=== PATIENT | male | born 1935 | race Caucasian/White ===

== ENCOUNTER 2020-07-23 13:02 | Emergency (ER) | payer OTHER ==
[2020-07-23 14:05] VITALS: TEMP 98.2; BMI 31.8
[2020-07-23 15:01] LABS: BASO % 0.9 % (0-2.0); EOS % 2.3 % (0-4.5); HEMATOCRIT 46.4 % (35.4-49); HEMOGLOBIN 15.7 GM/dL (11.7-16.9); LYMPH % 11.3 % (8-40); MCH 32.3 pg (25.7-33.7); MCHC 33.8 g/dl (32.0-35.9); MEAN CELL VOLUME 95.6 fl (80-96); MONO % 9.2 % (3.8-10.2); NEUT % 76.3 % (42.8-82.8); PLATELET COUNT 125 K/MM3 (134-434); RBC 4.86 M/mm3 (4.00-5.60); RDW 15.9 % (11.9-15.9)
[2020-07-23 15:26] LABS: CALCIUM 8.5 mg/dL (8.5-10.1)
[2020-07-23 15:27] LABS: ALBUMIN 3.2 g/dl (3.4-5.0); BLOOD UREA NITROGEN 25.7 mg/dL (7-18); MAGNESIUM 1.8 mg/dL (1.8-2.4)
[2020-07-23 15:30] LABS: CREATININE 0.8 mg/dL (0.55-1.3)
[2020-07-23 15:32] LABS: TOT PROT 5.9 g/dl (6.4-8.2)
[2020-07-23 16:28] LABS: EPI CELLS 10 /uL (0-25.1); HYALINE CASTS 3 /uL (0-3.1); URINE APPEARANCE CLEAR; URINE BACTERIA 53 /uL (0-1359); URINE BILIRUBIN 1+ (NEGATIVE); URINE COLOR DK YELLOW; URINE GLUCOSE (UA) NEGATIVE (NEGATIVE); URINE KETONE 1+ (NEGATIVE); URINE LEUK ESTERASE TRACE (NEGATIVE); URINE NITRITE NEGATIVE (NEGATIVE); URINE PROTEIN 1+ (NEGATIVE); URINE RBC 165 /uL (0-23.9); URINE WBC 77 /uL (0-25.8)
[2020-07-23] MEDS ORDERED: CEFTRIAXONE 1 GM in DEXTROSE 5%-WATER - 100 ML IVPB ONE (17:08)
[2020-07-23] MEDS ORDERED: CEFTRIAXONE 1 GM/50 ML BAG ONE (17:23)
[2020-07-23 19:40] VITALS: BP 122/62; PULSE 82
== END 2020-07-23 19:57 ==
LOC: JER 13:02
DX: R41.82 Altered mental status, unspecified (principal); N39.0 Urinary tract infection, site not specified
CPT/HCPCS: 36415; 70450-TC; 71045-TC-FY; 80053; 81003; 82550; 83735; 84443; 84484; 85025; 87086; 93005; 93010; 99285-25; C9803; U0003; U0005

== ENCOUNTER 2020-08-10 06:24 | Inpatient (IN) | payer OTHER ==
[2020-08-10 06:34] VITALS: BMI 26.5
[2020-08-10 08:19] LABS: EOS % 2.2 % (0-4.5); HEMATOCRIT 44.6 % (35.4-49); HEMOGLOBIN 14.9 GM/dL (11.7-16.9); LYMPH % 16.6 % (8-40); MCH 32.1 pg (25.7-33.7); MCHC 33.4 g/dl (32.0-35.9); MEAN CELL VOLUME 95.9 fl (80-96); MEAN PLT VOLUME 8.5 fl (7.5-11.1); MONO % 8.4 % (3.8-10.2); NEUT % 71.8 % (42.8-82.8); PLATELET COUNT 158 K/MM3 (134-434); RBC 4.66 M/mm3 (4.00-5.60); RDW 15.2 % (11.9-15.9); WHITE BLOOD COUNT 4.2 K/mm3 (4.0-10.0)
[2020-08-10 08:26] LABS: ACTIVATED PTT 29.1 SECONDS (25.2-36.5)
[2020-08-10 09:21] LABS: EPI CELLS 4 /uL (0-25.1); HYALINE CASTS 0 /uL (0-3.1); PH,URINE 6.5 (5.0-8.0); URINE APPEARANCE CLEAR; URINE BACTERIA 23 /uL (0-1359); URINE BILIRUBIN NEGATIVE (NEGATIVE); URINE COLOR YELLOW; URINE GLUCOSE (UA) NEGATIVE (NEGATIVE); URINE KETONE NEGATIVE (NEGATIVE); URINE LEUK ESTERASE NEGATIVE (NEGATIVE); URINE NITRITE NEGATIVE (NEGATIVE); URINE PROTEIN NEGATIVE (NEGATIVE); URINE RBC 70 /uL (0-23.9); URINE UROBILINOGEN 0.2 mg/dL (0.2-1.0); URINE WBC 8 /uL (0-25.8)
[2020-08-10 09:29] LABS: CALCIUM 8.7 mg/dL (8.5-10.1)
[2020-08-10 09:30] LABS: ALBUMIN 3.2 g/dl (3.4-5.0)
[2020-08-10 09:33] LABS: CREATININE 0.7 mg/dL (0.55-1.3)
[2020-08-10 09:35] LABS: BILIRUBIN,TOTAL 0.5 mg/dL (0.2-1)
[2020-08-10 10:08] LABS: INR 1.02 (0.83-1.09); PROTHROMBIN TIME (PATIENT) 12.5 SEC (9.7-13.0)
[2020-08-10] MEDS ORDERED: PANTOPRAZOLE SODIUM 40 MG VIAL IVPUSH ONE (11:34)
[2020-08-10] MEDS ORDERED: PANTOPRAZOLE SODIUM 40 MG VIAL ONE (11:58)
[2020-08-10] MEDS ORDERED: ACETAMINOPHEN 325 MG TABLET (FP) PO PRN (14:16)
[2020-08-10 19:50] LABS: HEMATOCRIT 41.8 % (35.4-49); HEMOGLOBIN 14.1 GM/dL (11.7-16.9); MCH 32.4 pg (25.7-33.7); MCHC 33.8 g/dl (32.0-35.9); MEAN CELL VOLUME 95.9 fl (80-96); MEAN PLT VOLUME 8.3 fl (7.5-11.1); PLATELET COUNT 151 K/MM3 (134-434); RBC 4.36 M/mm3 (4.00-5.60); RDW 15.4 % (11.9-15.9); WHITE BLOOD COUNT 4.3 K/mm3 (4.0-10.0)
[2020-08-10] MEDS: PANTOPRAZOLE SODIUM 40 MG VIAL IVPUSH SCH (22:26)
[2020-08-11] MEDS: TAMSULOSIN HCL 0.4 MG CAP PO SCH (08:12)
[2020-08-11 09:49] LABS: HEMATOCRIT 42.4 % (35.4-49); HEMOGLOBIN 14.5 GM/dL (11.7-16.9); MCH 32.5 pg (25.7-33.7); MCHC 34.1 g/dl (32.0-35.9); MEAN CELL VOLUME 95.3 fl (80-96); MEAN PLT VOLUME 7.8 fl (7.5-11.1); PLATELET COUNT 163 K/MM3 (134-434); RBC 4.45 M/mm3 (4.00-5.60); RDW 15.3 % (11.9-15.9)
[2020-08-11] MEDS: TOLTERODINE TARTRATE LA 4 MG CAP.SR.24H (FP) PO SCH (09:51)
[2020-08-11] MEDS: OLANZapine 5 MG TABLET PO SCH (09:52)
[2020-08-11] MEDS: THIAMINE HCL 100 MG TABLET (FP) PO SCH (09:52)
[2020-08-11] MEDS: FERROUS SO4 325 MG TABLET (FP) PO SCH (09:52)
[2020-08-11] MEDS: FOLIC ACID 1 MG TABLET (FP) PO SCH (09:52)
[2020-08-11] MEDS: PANTOPRAZOLE SODIUM 40 MG VIAL IVPUSH SCH ×2 (09:52→21:00)
[2020-08-11] MEDS ORDERED: VITAMIN B COMPLEX PO SCH (10:00)
[2020-08-11 10:07] LABS: CALCIUM 8.4 mg/dL (8.5-10.1)
[2020-08-11 10:08] LABS: BLOOD UREA NITROGEN 9.2 mg/dL (7-18)
[2020-08-11 10:11] LABS: CREATININE 0.9 mg/dL (0.55-1.3)
[2020-08-12] MEDS: TAMSULOSIN HCL 0.4 MG CAP PO SCH (08:42)
[2020-08-12 09:50] LABS: BASO % 1.2 % (0-2.0); EOS % 2.3 % (0-4.5); HEMATOCRIT 45.2 % (35.4-49); HEMOGLOBIN 15.6 GM/dL (11.7-16.9); LYMPH % 21.4 % (8-40); MCH 32.6 pg (25.7-33.7); MCHC 34.4 g/dl (32.0-35.9); MEAN CELL VOLUME 94.7 fl (80-96); MEAN PLT VOLUME 8.2 fl (7.5-11.1); MONO % 11.1 % (3.8-10.2); PLATELET COUNT 179 K/MM3 (134-434); RBC 4.77 M/mm3 (4.00-5.60); RDW 15.2 % (11.9-15.9)
[2020-08-12 10:17] LABS: ALBUMIN 3.4 g/dl (3.4-5.0); CALCIUM 8.9 mg/dL (8.5-10.1)
[2020-08-12 10:18] LABS: MAGNESIUM 2.2 mg/dL (1.8-2.4)
[2020-08-12 10:20] LABS: CREATININE 0.8 mg/dL (0.55-1.3)
[2020-08-12 10:22] LABS: BILIRUBIN,TOTAL 1.8 mg/dL (0.2-1); TOT PROT 6.7 g/dl (6.4-8.2)
[2020-08-12] MEDS ORDERED: PT OWN MED DRAWER 7, Y5N ONE (10:25)
[2020-08-12] MEDS: FERROUS SO4 325 MG TABLET (FP) PO SCH (10:36)
[2020-08-12] MEDS: TOLTERODINE TARTRATE LA 4 MG CAP.SR.24H (FP) PO SCH (10:36)
[2020-08-12] MEDS: THIAMINE HCL 100 MG TABLET (FP) PO SCH (10:36)
[2020-08-12] MEDS: OLANZapine 5 MG TABLET PO SCH (10:36)
[2020-08-12] MEDS: FOLIC ACID 1 MG TABLET (FP) PO SCH (10:36)
[2020-08-12] MEDS ORDERED: ERTAPENEM SODIUM 1 GM in SODIUM CHLORIDE 50 ML IVPB SCH (14:00)
[2020-08-13] MEDS ORDERED: PT OWN MED DRAWER 7, Y5N ONE (09:15)
[2020-08-13] MEDS: FOLIC ACID 1 MG TABLET (FP) PO SCH (09:19)
[2020-08-13] MEDS: TAMSULOSIN HCL 0.4 MG CAP PO SCH (09:19)
[2020-08-13] MEDS: FERROUS SO4 325 MG TABLET (FP) PO SCH (09:19)
[2020-08-13] MEDS: THIAMINE HCL 100 MG TABLET (FP) PO SCH (09:19)
[2020-08-13] MEDS: OLANZapine 5 MG TABLET PO SCH (09:19)
[2020-08-13] MEDS: TOLTERODINE TARTRATE LA 4 MG CAP.SR.24H (FP) PO SCH (09:20)
[2020-08-13 09:49] LABS: BILIRUBIN,TOTAL 0.6 mg/dL (0.2-1); CREATININE 0.9 mg/dL (0.55-1.3); TOT PROT 6.2 g/dl (6.4-8.2)
[2020-08-13 09:50] LABS: ALBUMIN 3.2 g/dl (3.4-5.0); BLOOD UREA NITROGEN 14.6 mg/dL (7-18); CALCIUM 8.8 mg/dL (8.5-10.1)
[2020-08-14] MEDS ORDERED: PT OWN MED DRAWER 7, Y5N ONE (09:40)
[2020-08-14] MEDS: FERROUS SO4 325 MG TABLET (FP) PO SCH (09:41)
[2020-08-14] MEDS: FOLIC ACID 1 MG TABLET (FP) PO SCH (09:41)
[2020-08-14] MEDS: TAMSULOSIN HCL 0.4 MG CAP PO SCH (09:41)
[2020-08-14] MEDS: THIAMINE HCL 100 MG TABLET (FP) PO SCH (09:41)
[2020-08-14] MEDS: TOLTERODINE TARTRATE LA 4 MG CAP.SR.24H (FP) PO SCH (09:41)
[2020-08-14] MEDS: OLANZapine 5 MG TABLET PO SCH (09:41)
[2020-08-14 13:17] VITALS: BP 122/66; PULSE 88; TEMP 98.7
== END 2020-08-14 15:41 | disposition home or self-care (01) | DRG 379 ==
LOC: JER 06:24 → JERBED 11:33 → J6S 14:50
PROVIDERS: ADMIT Internal Medicine; ATTEND Student in an Organized Health Care Education/Training Program
DX: K57.91 Diverticulosis of intestine, part unspecified, without perforation or abscess with bleeding (principal); E11.9 Type 2 diabetes mellitus without complications; F03.90 Unspecified dementia, unspecified severity, without behavioral disturbance, psychotic disturbance, mood disturbance, and anxiety; N28.1 Cyst of kidney, acquired; I10 Essential (primary) hypertension; E78.5 Hyperlipidemia, unspecified; F20.9 Schizophrenia, unspecified; Z86.73 Personal history of transient ischemic attack (TIA), and cerebral infarction without residual deficits; K44.9 Diaphragmatic hernia without obstruction or gangrene; N32.3 Diverticulum of bladder
CPT/HCPCS: 36415; 71045-TC-FY; 74177-TC; 80048; 80053; 81003; 82272; 82962; 83036; 83735; 84100; 85025; 85027; 85610; 85730; 86850; 86900; 86901; 87077; 87086; 87186; 93005; 93010; 97116-GP; 97162-GP; 99285-25; C9803; U0003; U0005

== ENCOUNTER 2020-10-29 12:26 | Emergency (ER) | payer OTHER ==
[2020-10-29 13:05] VITALS: BP 140/80; PULSE 79; TEMP 98.2; BMI 34.9
[2020-10-29 15:28] LABS: BASO % 0.7 % (0-2.0); EOS % 2.6 % (0-4.5); HEMATOCRIT 47.5 % (35.4-49); HEMOGLOBIN 16.3 GM/dL (11.7-16.9); LYMPH % 20.7 % (8-40); MCH 32.2 pg (25.7-33.7); MCHC 34.4 g/dl (32.0-35.9); MEAN CELL VOLUME 93.7 fl (80-96); MONO % 9.7 % (3.8-10.2); NEUT % 66.3 % (42.8-82.8); PLATELET COUNT 124 10^3/uL (134-434); RBC 5.07 M/mm3 (4.00-5.60); RDW 14.8 % (11.9-15.9); WHITE BLOOD COUNT 5.1 K/mm3 (4.0-10.0)
[2020-10-29 15:30] LABS: EPI CELLS 2 /uL (0-25.1); HYALINE CASTS 0 /uL (0-3.1); URINE APPEARANCE CLEAR; URINE BACTERIA 12 /uL (0-1359); URINE BILIRUBIN NEGATIVE (NEGATIVE); URINE COLOR YELLOW; URINE GLUCOSE (UA) NEGATIVE (NEGATIVE); URINE KETONE NEGATIVE (NEGATIVE); URINE LEUK ESTERASE NEGATIVE (NEGATIVE); URINE NITRITE NEGATIVE (NEGATIVE); URINE PROTEIN NEGATIVE (NEGATIVE); URINE RBC 146 /uL (0-23.9); URINE UROBILINOGEN 0.2 mg/dL (0.2-1.0); URINE WBC 2 /uL (0-25.8)
[2020-10-29 15:38] LABS: INR 1.05 (0.83-1.09); PROTHROMBIN TIME (PATIENT) 12.7 SEC (9.7-13.0)
[2020-10-29 15:56] LABS: BLOOD UREA NITROGEN 17.1 mg/dL (7-18); CALCIUM 9.2 mg/dL (8.5-10.1)
[2020-10-29 15:57] LABS: ALBUMIN 3.8 g/dl (3.4-5.0)
[2020-10-29 16:01] LABS: BILIRUBIN,TOTAL 0.7 mg/dL (0.2-1); TOT PROT 7.2 g/dl (6.4-8.2)
== END 2020-10-29 19:20 | disposition home or self-care (01) ==
LOC: JER 12:26
DX: K62.5 Hemorrhage of anus and rectum (principal)
CPT/HCPCS: 36415; 80053; 81003; 82272; 83690; 85025; 85610; 86850; 86900; 86901; 93005; 93010; 99284-25

== ENCOUNTER 2020-12-18 12:45 | Emergency (ER) | payer OTHER ==
[2020-12-18 13:18] VITALS: BMI 28.3
[2020-12-18 14:19] LABS: EOS % 3.2 % (0-4.5); HEMATOCRIT 48.5 % (35.4-49); HEMOGLOBIN 16.8 GM/dL (11.7-16.9); LYMPH % 21.5 % (8-40); MCH 32.4 pg (25.7-33.7); MCHC 34.5 g/dl (32.0-35.9); MEAN CELL VOLUME 93.9 fl (80-96); MONO % 9.3 % (3.8-10.2); PLATELET COUNT 126 10^3/uL (134-434); RBC 5.17 M/mm3 (4.00-5.60); RDW 14.9 % (11.9-15.9); WHITE BLOOD COUNT 4.6 K/mm3 (4.0-10.0)
[2020-12-18 14:41] LABS: ALBUMIN 3.6 g/dl (3.4-5.0); BLOOD UREA NITROGEN 21.3 mg/dL (7-18); CALCIUM 9.1 mg/dL (8.5-10.1)
[2020-12-18 14:46] LABS: BILIRUBIN,TOTAL 0.6 mg/dL (0.2-1); TOT PROT 7.2 g/dl (6.4-8.2)
[2020-12-18] MEDS ORDERED: metroNIDAZOLE 500 MG TABLET PO ONE (17:01)
[2020-12-18] MEDS ORDERED: CIPROFLOXACIN 500 MG TABLET (RESTRICTED TO ID) PO ONE (17:01)
[2020-12-19 07:03] VITALS: BP 114/66; PULSE 79; TEMP 98.6
== END 2020-12-19 07:36 ==
LOC: JER 12:45
DX: K57.92 Diverticulitis of intestine, part unspecified, without perforation or abscess without bleeding (principal); R14.0 Abdominal distension (gaseous)
CPT/HCPCS: 36415; 74177-TC; 80053; 82272; 83605; 83690; 85025; 93005; 93010; 99285-25; Q9967

== ENCOUNTER 2021-02-02 19:46 | Emergency (ER) | payer OTHER ==
[2021-02-02 19:59] VITALS: TEMP 98.9; BMI 35.7
[2021-02-02 23:14] LABS: EOS % 2.5 % (0-4.5); HEMATOCRIT 46.8 % (35.4-49); HEMOGLOBIN 16.1 GM/dL (11.7-16.9); LYMPH % 21.6 % (8-40); MCH 32.9 pg (25.7-33.7); MCHC 34.3 g/dl (32.0-35.9); MEAN CELL VOLUME 95.7 fl (80-96); MEAN PLT VOLUME 7.7 fl (7.5-11.1); MONO % 7.9 % (3.8-10.2); PLATELET COUNT 129 10^3/uL (134-434); RBC 4.89 M/mm3 (4.00-5.60); RDW 14.5 % (11.9-15.9); WHITE BLOOD COUNT 5.1 K/mm3 (4.0-10.0)
[2021-02-02 23:21] LABS: INR 1.13 (0.83-1.09); PROTHROMBIN TIME (PATIENT) 13.2 SEC (9.7-13.0)
[2021-02-02 23:24] LABS: ACTIVATED PTT 31.6 SECONDS (25.2-36.5)
[2021-02-02 23:35] LABS: CALCIUM 8.6 mg/dL (8.5-10.1)
[2021-02-02 23:36] LABS: ALBUMIN 3.3 g/dl (3.4-5.0); BLOOD UREA NITROGEN 19.8 mg/dL (7-18)
[2021-02-02 23:39] LABS: CREATININE 1.1 mg/dL (0.55-1.3)
[2021-02-02 23:41] LABS: BILIRUBIN,TOTAL 0.7 mg/dL (0.2-1); TOT PROT 6.8 g/dl (6.4-8.2)
[2021-02-02 23:48] LABS: EPI CELLS 0 /uL (0-25.1); HYALINE CASTS 3 /uL (0-3.1); URINE APPEARANCE TURBID; URINE BILIRUBIN 1+ (NEGATIVE); URINE COLOR RED; URINE GLUCOSE (UA) NEGATIVE (NEGATIVE); URINE KETONE NEGATIVE (NEGATIVE); URINE LEUK ESTERASE 2+ (NEGATIVE); URINE NITRITE POSITIVE (NEGATIVE); URINE PROTEIN 1+ (NEGATIVE); URINE RBC 1520 /uL (0-23.9); URINE UROBILINOGEN 0.2 mg/dL (0.2-1.0); URINE WBC 1 /uL (0-25.8)
[2021-02-03] MEDS ORDERED: NITROFURANTOIN MACROCRYSTAL 50 MG CAPSULE (FP) PO ONE (01:45)
[2021-02-03] MEDS ORDERED: NITROFURANTOIN MACROCRYSTAL 50 MG CAPSULE (FP) ONE (02:02)
[2021-02-03 11:07] VITALS: BP 135/86; PULSE 72
== END 2021-02-03 11:05 ==
LOC: JER 19:46
DX: R31.9 Hematuria, unspecified (principal)
CPT/HCPCS: 36415; 76775-TC; 76856-TC; 80053; 81003; 82550; 82570; 85025; 85610; 85730; 87086; 99284-25

== ENCOUNTER 2024-06-25 06:23 | Inpatient (IN) | payer OTHER ==
[2024-06-25 06:38] VITALS: BMI 33.3
[2024-06-25 08:00] LABS: ABSOLUTE IMMATURE GRANULOCYTES 0.02 x10^3/uL (0.0-0.031); BASOPHILS # 0.03 x10^3/uL (0.01-0.08); EOSINOPHIL % 1.7 % (0.8-7.0); HEMATOCRIT 53.2 % (40.1-51.0); HEMOGLOBIN 17.3 g/dL (13.7-17.5); MCHC 32.5 g/dl (32.3-36.5); MEAN CELL VOLUME 92.2 fl (79.0-92.2); MEAN PLT VOLUME 10.5 fl (9.4-12.4); MONOCYTE # 0.63 x10^3/uL (0.30-0.82); MONOCYTE % 10.7 % (5.3-12.2); PLATELET COUNT 131 x10^3/uL (163-337); RDW 13.7 % (12.6-16.6)
[2024-06-25 08:03] LABS: POTASSIUM 4.3 mmol/L (3.5-5.1)
[2024-06-25 08:05] LABS: CALCIUM 9.4 mg/dL (8.5-10.1)
[2024-06-25 08:06] LABS: ALBUMIN 3.4 g/dl (3.4-5.0); MAGNESIUM 2.1 mg/dL (1.8-2.4)
[2024-06-25 08:10] LABS: TOT PROT 6.9 g/dl (6.4-8.2)
[2024-06-25] MEDS ORDERED: ALBUTEROL SO4 2.5/IPRATROPIUM 0.5 INH SOL 3 ML VIAL.NEB. NEB ONE ×2 (08:37→09:28)
[2024-06-25] MEDS: ALBUTEROL SO4 2.5/IPRATROPIUM 0.5 INH SOL 3 ML VIAL.NEB. NEB ONE (08:43)
[2024-06-25] MEDS ORDERED: methylPREDNISolone NA SUCC 125 MG/2 ML VIAL ONE (09:28)
[2024-06-25] MEDS: ALBUTEROL SO4 2.5/IPRATROPIUM 0.5 INH SOL 3 ML VIAL.NEB. NEB SCH (09:31)
[2024-06-25] MEDS: methylPREDNISolone NA SUCC 125 MG/2 ML VIAL IVPUSH ONE (09:32)
[2024-06-25] MEDS ORDERED: ENOXAPARIN NA (PORCINE) 100 MG/1 ML DISP.SYRIN SQ ONE (12:18)
[2024-06-25] MEDS: ENOXAPARIN NA (PORCINE) 80 MG/0.8 ML DISP.SYRIN SQ ONE (12:22)
[2024-06-25] MEDS: SODIUM CHLORIDE 0.9% 500 ML INFUS.BAG IV ONE (12:29)
[2024-06-25 12:43] LABS: PH,URINE 5.5 (5.0-8.0); URINE APPEARANCE CLEAR; URINE BILIRUBIN NEGATIVE (NEGATIVE); URINE COLOR YELLOW; URINE GLUCOSE (UA) NEGATIVE (NEGATIVE); URINE KETONE 1+ (NEGATIVE); URINE LEUK ESTERASE NEGATIVE (NEGATIVE); URINE NITRITE NEGATIVE (NEGATIVE); URINE PROTEIN NEGATIVE (NEGATIVE); URINE UROBILINOGEN 0.2 mg/dL (0.2-1.0)
[2024-06-25] MEDS: ENOXAPARIN NA (PORCINE) 100 MG/1 ML DISP.SYRIN SQ SCH (21:05)
[2024-06-25] MEDS: ATORVASTATIN CA 20 MG TABLET (FP) PO SCH (21:07)
[2024-06-26 07:23] LABS: ABSOLUTE IMMATURE GRANULOCYTES 0.06 x10^3/uL (0.0-0.031); BASOPHILS # 0.02 x10^3/uL (0.01-0.08); HEMATOCRIT 48.4 % (40.1-51.0); HEMOGLOBIN 15.9 g/dL (13.7-17.5); MCHC 32.9 g/dl (32.3-36.5); MEAN CELL VOLUME 92.4 fl (79.0-92.2); MEAN PLT VOLUME 10.6 fl (9.4-12.4); MONOCYTE # 0.88 x10^3/uL (0.30-0.82); MONOCYTE % 6.6 % (5.3-12.2); PLATELET COUNT 140 x10^3/uL (163-337); RDW 13.5 % (12.6-16.6)
[2024-06-26 07:47] LABS: POTASSIUM 4.4 mmol/L (3.5-5.1)
[2024-06-26 07:57] LABS: BILIRUBIN,TOTAL 0.6 mg/dL (0.2-1); CALCIUM 9.1 mg/dL (8.5-10.1)
[2024-06-26 07:58] LABS: BLOOD UREA NITROGEN 28.8 mg/dL (7-18); MAGNESIUM 2.1 mg/dL (1.8-2.4)
[2024-06-26 07:59] LABS: CREATININE 1.2 mg/dL (0.55-1.3)
[2024-06-26 08:00] LABS: TOT PROT 6.2 g/dl (6.4-8.2)
[2024-06-26] MEDS: TAMSULOSIN HCL 0.4 MG CAP PO SCH (09:30)
[2024-06-26] MEDS: ASPIRIN 81 MG CHEWABLE TABLETS PO SCH (09:31)
[2024-06-26] MEDS: LOSARTAN POTASSIUM 25 MG TABLET PO SCH (09:31)
[2024-06-26] MEDS: OLANZapine 5 MG TABLET PO SCH (09:31)
[2024-06-26] MEDS: NICOTINE 14 MG/24 HOURS TOPICAL PATCH TD SCH (13:03)
[2024-06-26] MEDS: INSULIN ASPART SLIDING SCALE (NOVOLOG) 1 VIAL SQ SCH (17:03)
[2024-06-27 07:35] LABS: ABSOLUTE IMMATURE GRANULOCYTES 0.03 x10^3/uL (0.0-0.031); BASOPHILS # 0.03 x10^3/uL (0.01-0.08); EOSINOPHIL % 1.5 % (0.8-7.0); HEMATOCRIT 53.1 % (40.1-51.0); MEAN CELL VOLUME 94.5 fl (79.0-92.2); MEAN PLT VOLUME 11.5 fl (9.4-12.4); MONOCYTE % 8.7 % (5.3-12.2); PLATELET COUNT 124 x10^3/uL (163-337)
[2024-06-27 08:01] LABS: BLOOD UREA NITROGEN 30.9 mg/dL (7-18)
[2024-06-27 08:04] LABS: CALCIUM 8.9 mg/dL (8.5-10.1)
[2024-06-27] MEDS: APIXABAN 5 MG TABLET PO ONE (21:37)
[2024-06-27] MEDS: DOCUSATE SODIUM 100 MG CAPSULE (FP) PO PRN (21:38)
[2024-06-28 03:24] VITALS: TEMP 97.3
[2024-06-28 07:29] LABS: POTASSIUM 3.9 mmol/L (3.5-5.1)
[2024-06-28 07:31] LABS: BLOOD UREA NITROGEN 29.2 mg/dL (7-18); CALCIUM 8.9 mg/dL (8.5-10.1)
[2024-06-28 07:35] LABS: CREATININE 0.9 mg/dL (0.55-1.3)
[2024-06-28 07:41] LABS: HEMOGLOBIN 16.8 g/dL (13.7-17.5); MCHC 32.3 g/dl (32.3-36.5); MEAN CELL VOLUME 94.2 fl (79.0-92.2); MEAN PLT VOLUME 10.6 fl (9.4-12.4); PLATELET COUNT 134 x10^3/uL (163-337); RDW 13.8 % (12.6-16.6)
[2024-06-28] MEDS: APIXABAN 5 MG TABLET PO SCH (09:43)
[2024-06-28 12:11] VITALS: BP 110/73; PULSE 78; RESP 20
== END 2024-06-28 10:21 | DRG 176 ==
LOC: JER 06:23 → JERBED 12:25 → J4W 14:19
PROVIDERS: ADMIT Student in an Organized Health Care Education/Training Program; ATTEND Internal Medicine
DX: I26.99 Other pulmonary embolism without acute cor pulmonale (principal); I10 Essential (primary) hypertension; E78.5 Hyperlipidemia, unspecified; E11.9 Type 2 diabetes mellitus without complications; N40.0 Benign prostatic hyperplasia without lower urinary tract symptoms; F20.9 Schizophrenia, unspecified; F03.90 Unspecified dementia, unspecified severity, without behavioral disturbance, psychotic disturbance, mood disturbance, and anxiety; D50.9 Iron deficiency anemia, unspecified; R19.7 Diarrhea, unspecified; N28.1 Cyst of kidney, acquired; K44.9 Diaphragmatic hernia without obstruction or gangrene; K59.00 Constipation, unspecified
CPT/HCPCS: 0241U-QW; 36415; 71045-TC-FY; 71275-TC; 80048; 80053; 81003; 82962; 83735; 84484; 85025; 85027; 87077; 87086; 93005; 93010; 93306-TC; 93970-TC; 94761; 97116-GP; 97162-GP; 99285-25; Q9967